=== PATIENT | female | born 1930 | race Two or more races ===

== ENCOUNTER 2017-11-26 21:29 | Inpatient (IN) | payer MEDICARE, BC ==
[~2017-11-26] VITALS: Ht 152.4 cm; Wt 56.7 kg
[2017-11-26 22:50] VITALS: BP 146/75
[2017-11-26] MEDS ORDERED: MAG HYDROX/AL HYDROX/SIMETH 30 ML UDC PO PRN (23:00)
[2017-11-26] MEDS ORDERED: LORAZEPAM 0.5 MG TABLET PO PRN (23:00)
[2017-11-26] MEDS ORDERED: ACETAMINOPHEN 325 MG TABLET PO PRN (23:00)
[2017-11-26] MEDS ORDERED: TEMAZEPAM 7.5 MG CAPSULE PO PRN (23:00)
[2017-11-26] MEDS ORDERED: ENAL10TA PO (23:17)
[2017-11-26] MEDS ORDERED: MELO15TA13 PO (23:17)
[2017-11-26] MEDS ORDERED: EZET10TA14 PO (23:17)
[2017-11-26] MEDS ORDERED: AMLO5TAB2 PO (23:17)
--- NOTE | 2017-11-26 23:30 | NUR ---
GPS HOME SUPPORT WORKER NOTE: RECEIVED PATIENT FROM [facility]. ([facility] TRANSFERRED VIA AMBULANCE) ON GURNEY WITH TWO PARAMEDICS AND BY SIDE AT 2245. REPORT OBTAINED FROM STEVE WATTS NURSE AT [facility] PRIOR TO ADMISSION. PATIENT ADMITTED ON 5150 HOLD FOR DTS. PER HOLD PATIENT WAS THREATENING TO JUMP OUT OF THE MOVING VEHICLE TODAY SAYING "I WANT TO ". ORIGINAL HOLD ON CHART, ADVISEMENT DONE. PATIENT IS ALERT AND ORIENTED X 1, AMBULATORY, CONTINENT, APPEARS DEPRESSED WITH FLAT AFFECT, WITHDRAWN. PATIENT HAS INTACT SKIN, GOOD CIRCULATION AND BREATHING IS UNLABORED WITH EQUAL RISE AND FALL OF THE CHEST WITH 98% ON ROOM AIR. DENIES PAIN, DOES NOT ENDORSE SI, HI, OR HALLUCINATIONS. PATIENT IS HARD OF HEARING AND REFUSED TO SIGN PAPERWORK, REFUSED MRSA SWAB AND VACCINATIONS. NO CONTRABAND WAS BROUGHT IN BY PATIENT, ORIENTED TO UNIT, AND DAUGHTER, DANYELL, GIVEN VISITING HOUR AND PHONE INFO BEFORE THEY LEFT. PATIENT WAS NOT HUNGRY AND HAS NO APPARENT NEEDS AT THIS TIME. CURRENTLY SLEEPING IN BED, SNYDER WITHIN REACH, LOW POSITION WITH SIDE RAILS UP X 2. DR[address] ZPAATA AND DR. SENA HAVE BEEN NOTIFIED OF PATIENT ADMISSION, MEDS RECONCILED. WILL CONTINUE TO MONITOR Q15 MINUTES FOR SAFETY
[2017-11-27] MEDS ORDERED: hydrALAZINE HCL 10 MG TABLET PO PRN (05:00)
[2017-11-27 08:00] VITALS: BP 142/76
[2017-11-27] MEDS: AMLODIPINE BESYLATE 5 MG TABLET PO SCH (08:40)
[2017-11-27] MEDS: ENALAPRIL MALEATE (10 MG) 10 MG TABLET PO SCH ×2 (08:40→16:23)
[2017-11-27] MEDS: EZETIMIBE 10 MG TABLET PO SCH (08:40)
[2017-11-27 10:03] LABS: BASOPHILS % (AUTO) 0.5 % (0.0-2.0); EOSINOPHILS % (AUTO) 4.7 % (0.0-6.0); HEMATOCRIT 36 % (33-45); HEMOGLOBIN 12.1 g/dL (11.5-14.8); LYMPHOCYTES # (AUTO) 1.1 /CMM (0.8-4.8); LYMPHOCYTES % (AUTO) 21.5 % (20.0-44.0); MEAN CORPUSCULAR HEMOGLOBIN 31 PG (26.0-33.0); MEAN CORPUSCULAR HGB CONC 33 g/dl (31.0-36.0); MEAN CORPUSCULAR VOLUME 94 fL (82-100); MONOCYTES # (AUTO) 0.4 /CMM (0.1-1.30); MONOCYTES % (AUTO) 8.3 % (2.0-12.0); NEUTROPHILS # (AUTO) 3.2 /CMM (1.8-8.9); PLATELET COUNT (AUTO) 317 /CMM (150-450); RDW COEFFICIENT OF VARIATION 13.9 (11.5-15.0); RED BLOOD CELL COUNT(AUTO) 3.85 MIL/uL (4.0-5.2); WHITE BLOOD COUNT (AUTO) 4.9 K/uL (4.3-11.0)
[2017-11-27 10:35] LABS: ALANINE AMINOTRANSFERASE 24 U/L (12-78); ALBUMIN 3.2 g/dL (3.4-5.0); ALKALINE PHOSPHATASE 40 U/L (46-116); ASPARTATE AMINOTRANSFERASE 19 U/L (15-37); BILIRUBIN,TOTAL 0.3 mg/dL (0.2-1.0); CALCIUM, SERUM 9.1 mg/dL (8.5-10.1); CARBON DIOXIDE 26 mmol/L (21-32); CHLORIDE 106 mmol/L (98-107); CREATININE 0.9 mg/dL (0.6-1.3); GLUCOSE 213 mg/dL (74-106); PHOSPHORUS 3.1 mg/dL (2.5-4.9); SODIUM SERUM 139 mmol/L (136-145); TOTAL PROTEIN, SERUM 6.8 g/dL (6.4-8.2); UREA NITROGEN, BLOOD 30 mg/dL (7-18)
[2017-11-27 10:57] LABS: THYROID STIMULATING HORMONE 0.937 uIU/mL (0.358-3.74)
[2017-11-27] MEDS: MELOXICAM 7.5 MG TABLET PO SCH (11:21)
--- NOTE | 2017-11-27 13:00 | NUR ---
URINE AND MRSA SWAB OBTAINED AT REQUEST OF [facility].
[2017-11-27 16:00] VITALS: BP 165/85
--- NOTE | 2017-11-27 18:21 | NUR ---
RN. CLOSING. PT RESTING IN BED, WITH FAMILY AT BEDSIDE. PT ENGAGING APPROPRIATELY AND DENIES SI/SH. PT COMPLIANT WITH MEDS. DAY NURSE DUTIES ATTENDED TO. PT COOPERATIVE AND APPROPRIATE AND WITHOUT CONCERN OR COMPLAINT AT THIS TIME.
[2017-11-27 18:45] LABS: APPEARANCE,URINE CLEAR (CLEAR); BILIRUBIN,URINE NEGATIVE (NEGATIVE); BLOOD, URINE NEGATIVE Ery/uL (NEGATIVE); COLOR,URINE YELLOW (YELLOW); KETONES,URINE NEGATIVE (NEGATIVE); LEUKOCYTE ESTERASE ,URINE TRACE (NEGATIVE); NITRITE, URINE NEGATIVE (NEGATIVE); PH,URINE 7.5 (5.0-8.0); PROTEIN,URINE NEGATIVE (NEGATIVE); UGLUCOSE NEGATIVE (NEGATIVE); UROBILINOGEN,URINE 0.2 EU/dL (0.2)
[2017-11-27 19:10] LABS: BACTERIA,URINE None seen /HPF (None Seen); RBC,URINE 0-2 /HPF (0-2); SQUAMOUS EPITHELIAL CELL,UR Few /HPF (None Seen)
[2017-11-27 20:19] VITALS: BP 126/67
[2017-11-27] MEDS: MIRTAZAPINE 15 MG TABLET PO SCH (21:16)
[2017-11-28] MEDS: ENALAPRIL MALEATE (10 MG) 10 MG TABLET PO SCH ×2 (08:13→16:13)
[2017-11-28] MEDS: EZETIMIBE 10 MG TABLET PO SCH (08:13)
[2017-11-28] MEDS: MELOXICAM 7.5 MG TABLET PO SCH (08:13)
[2017-11-28] MEDS: AMLODIPINE BESYLATE 5 MG TABLET PO SCH (08:14)
[2017-11-28 08:44] VITALS: BP 133/65
--- NOTE | 2017-11-28 12:20 | NUR ---
INITIAL DISCHARGE PLAN: Pt wants to return home to [address] [address] . DOYLE contacted pt Juan [phone] who confirmed that pt will return home upon discharge and that he would be picking her up from hospital and transporting home, DOYLE will help form a safe and proper discharge home in collaboration with .
[2017-11-28 16:00] VITALS: BP 120/54
--- NOTE | 2017-11-28 19:30 | NUR ---
RN NOTES RECEIVED PATIENT SITTING UP IN BED. AO X 3, ABLE TO MAKE NEEDS KNOWN. NO ACUTE DISTRESS NOTED. DENIES ANY PAIN AT THIS TIME. DENIES ANY SUICIDAL IDEATION AT THIS TIME. PATIENT CALM. SAFETY REMINDERS GIVEN. ON LOW BED WITH BILATERAL UPPER SIDE RAILS UP. CALL SNYDER WITHIN EASY REACH. WILL CONTINUE TO MONITOR. AT BEDSIDE.
[2017-11-28 20:00] VITALS: BP 158/69
[2017-11-28] MEDS: MIRTAZAPINE 15 MG TABLET PO SCH (21:11)
--- NOTE | 2017-11-29 06:45 | NUR ---
RN NOTES PATIENT ASLEEP, EASILY AROUSABLE. RESPIRATIONS EVEN. NO SIGNS OF PAIN NOTED. DUE MED GIVEN WITH NO ASE NOTE. NEEDS ATTENDED. KEPT CLEAN, DRY, AND COMFORTABLE. SAFETY PRECAUTIONS AND COMFORT MEASURES IN PLACE. WILL GIVE REPORT TO DAY SHIFT FOR CONTINUITY OF CARE.
[2017-11-29 09:00] VITALS: BP 144/55
[2017-11-29] MEDS: MELOXICAM 7.5 MG TABLET PO SCH (09:09)
[2017-11-29] MEDS: EZETIMIBE 10 MG TABLET PO SCH (09:09)
[2017-11-29] MEDS: AMLODIPINE BESYLATE 5 MG TABLET PO SCH (09:10)
[2017-11-29] MEDS: ENALAPRIL MALEATE (10 MG) 10 MG TABLET PO SCH ×2 (09:10→17:46)
[2017-11-29 16:00] VITALS: BP 149/69
[2017-11-29] MEDS: MAGNESIUM HYDROXIDE 30 ML UDC PO PRN (18:57)
--- NOTE | 2017-11-29 18:58 | NUR ---
RN NOTE:PATIENT COMPLAIN OF CONSTIPATION MEDICATED WITH MOM X1.WILL CONTINUE TO MONITOR .
[2017-11-29 20:31] VITALS: BP 150/74
[2017-11-29] MEDS ORDERED: BISACODYL SUPP (10 MG) 10 MG/SUPP.RECT SUPP.RECT RC PRN (21:00)
--- NOTE | 2017-11-29 21:09 | NUR ---
GPS-RN PATIENT C/O NOT HAVING BOWEL MOVEMENT FOR [address] SEGAL AND NOTIFIED OF FINDING ASSESSMENT AND GAVE AN ORDER FOR DULCOLAX 10MG SUPP NOTED AND CARRIED OUT. ADMINISTERED DULCOLAX 10MG I SUPP PER RECTAL AND EFFECTIVE.
[2017-11-29] MEDS: MIRTAZAPINE 15 MG TABLET PO SCH (21:40)
[2017-11-30 08:00] VITALS: BP 134/63
[2017-11-30] MEDS: MELOXICAM 7.5 MG TABLET PO SCH (09:16)
[2017-11-30] MEDS: ENALAPRIL MALEATE (10 MG) 10 MG TABLET PO SCH ×2 (09:16→17:23)
[2017-11-30] MEDS: EZETIMIBE 10 MG TABLET PO SCH (09:16)
[2017-11-30] MEDS: AMLODIPINE BESYLATE 5 MG TABLET PO SCH (09:17)
[2017-11-30 16:00] VITALS: BP 140/72
--- NOTE | 2017-11-30 19:16 | NUR ---
RN NOTE:PATIENT COMPLAIN OF PAIN MEDICATED WITH TYLENOL 650MG WILL CONTINUE TO MONITOR FOR PAIN.
--- NOTE | 2017-11-30 19:30 | NUR ---
GPS RN NOTE, RECEIVED PATIENT AWAKE AND IN BED, PATIENT HAS A COMPLAINT OF TOOTH PAIN AT 2 OUT 10 ON THE PAIN SCALE. PATIENT IS TAKING ORAL PAIN MEDICATION FOR THIS PAIN. PATIENT IS DISPLAYING NO S/S OF APPARENT DISTRESS AT THIS TIME. PATIENT BREATHING IS UNLABORED WITH EQUAL RISE AND FALL OF THE CHEST. PATIENT IS ALERT AND ORIENTED X 3 ON ROOM AIR WITH A SPO2 93%. PATIENT IS MED COMPLIANT, [place], DEPRESSED, COOPERATIVE, AND NEEDS REORIENTATION. PATIENT DENIES SUICIDE IDEATIONS AND HOMICIDAL IDEATIONS AT THIS TIME. PATIENT ASSISTED WITH TURNING AND REPOSITIONING Q2 HR AND PRN FOR COMFORT AND CIRCULATION. PATIENT HAS NO NEEDS AT THIS TIME. PATIENT EDUCATED ON THE USE OF THE CALL SNYDER. PATIENT BED SIDE RAILS UP X 2 FOR SAFETY, BED LOCKED AND LOW WILL CONTINUE TO MONITOR AND MAINTAIN SAFETY Q15 MIN WITH THE HELP OF STAFF.
--- NOTE | 2017-11-30 20:15 | NUR ---
GPS RN NOTE, FAMILY BROUGHT IN META MUCIL AND WOULD LIKE THIS PATIENT TO BE ABLE TO HAVE IT. DR ZAPATA ON FLOOR. INFORMED DR ZAPTAA OF MY FINDINGS. DR ZAPATA ORDERED TO CONTINUE META MUCIL AND TO GIVE 2 ROUNDED TEASPOONS MIX WITH 8OZ OF WATER TID PRN FOR CONSTIPATION. ALL ORDERS NOTED AND CARRIED OUT WILL CONTINUE TO MONITOR THIS PATIENT.
[2017-11-30 20:20] VITALS: BP 154/76
[2017-11-30] MEDS ORDERED: BENEFIBER 4 GM 1 EA PACKET PO PRN (20:30)
[2017-11-30] MEDS: MIRTAZAPINE 15 MG TABLET PO SCH (21:56)
[2017-12-01 08:00] VITALS: BP 154/75
[2017-12-01] MEDS: EZETIMIBE 10 MG TABLET PO SCH (08:18)
[2017-12-01] MEDS: AMLODIPINE BESYLATE 5 MG TABLET PO SCH (08:18)
[2017-12-01] MEDS: ENALAPRIL MALEATE (10 MG) 10 MG TABLET PO SCH ×2 (08:19→16:23)
[2017-12-01] MEDS: MELOXICAM 7.5 MG TABLET PO SCH (08:19)
--- NOTE | 2017-12-01 15:16 | NUR ---
DOYLE spoke with pts daughter Ninoska [phone] to notify that pt will be discharged on 12/02/17. Pts daughter confirmed that MD had notified her and she would be picking pt up on 12/02/17 and transporting home via private vehicle. Pts daughter also requested home health and provided DOYLE with home health agency name and contact information. [facility] phone: [phone] fax: [phone].
[2017-12-01 16:00] VITALS: BP 157/81
[2017-12-01] MEDS: MAGNESIUM HYDROXIDE 30 ML UDC PO PRN (18:28)
[2017-12-01 20:00] VITALS: BP 142/74
[2017-12-01] MEDS: MIRTAZAPINE 15 MG TABLET PO SCH (20:37)
[2017-12-02 08:00] VITALS: BP 153/78
[2017-12-02] MEDS: MELOXICAM 7.5 MG TABLET PO SCH (08:44)
[2017-12-02] MEDS: AMLODIPINE BESYLATE 5 MG TABLET PO SCH (08:45)
[2017-12-02] MEDS: ENALAPRIL MALEATE (10 MG) 10 MG TABLET PO SCH ×2 (08:45→16:06)
[2017-12-02] MEDS: EZETIMIBE 10 MG TABLET PO SCH (08:45)
--- NOTE | 2017-12-02 15:19 | NUR ---
DOYLE faxed home health referral [facility] Address: [address] [address], [place] [address] .
--- NOTE | 2017-12-02 15:50 | NUR ---
DISCHARGE NOTE: Pt being discharged at 4:00pm home to [address] [facility] [facility] [address] via private vehicle by pts daughter Ninoska [phone] who agrees with discharge plan. Pts appeared in a pleasant mood with congruent affect. Pt denied Visual/auditory hallucinations and denied suicidal/homicidal ideations. Pt will be discharged home with home health. DOYLE has submitted referral to [facility] Address: [address], [place] [address] . DOYLE encouraged pts daughter to schedule a follow up appointment with a psychiatrist and DOYLE also provided pts daughter will Mental health referrals to [facility] [address], [facility] [id number] and [facility] [address] [address] [id number] . DOYLE provided pts daughter with [employer] application line phone number . Pts daughter will also schedule a follow up appointment with [employer]: Dr. Mesha Saldana [facility] [address] [place] [address]. The multidisciplinary exitcare form was done, printed, signed, and given to the patient.
[2017-12-02 16:00] VITALS: BP 142/77
[2017-12-02 16:06] VITALS: BP 142/77
--- NOTE | 2017-12-02 16:33 | NUR ---
GPS DISCHARGE NOTE: PATIENT DISCHARGE HOME WITH AND DAUGHTER TO PICKED UP. PT IN STABLE CONDITION NO S/S DISTRESS NOTED, PT A/O X4, AMBULATORY ,SELF CARE, DENIES SUICIDAL AND HOMICIDAL IDEATION PT DENIES VISUAL AND AUDITORY HALLUCINATIONS, PT DENIES FEELING DEPRESSED .BOTH MD AWARE WITH DC ORDER RX DONE , EXPLAIN AND GIVEN TO PT AND DAUGHTER, FOLLOW UP APPOINTMENT GIVEN TO PT.HOME HEALTH ORDERED, PT VSS , PT WAS SEEN AND EXAMINE BY DR ANGEL. SKIN CLEAN AND INTACT, ALL BELONGINGS RETURNED TO PT.
== END 2017-12-02 16:25 | disposition home or self-care (01) | DRG 881 ==
LOC: GPS 22:35
PROVIDERS: ADMIT Psychiatry & Neurology Psychiatry; ATTEND Psychiatry & Neurology Psychiatry
DX: F32.9 Major depressive disorder, single episode, unspecified (principal); R45.851 Suicidal ideations; F23 Brief psychotic disorder; G89.4 Chronic pain syndrome; M06.9 Rheumatoid arthritis, unspecified; E78.5 Hyperlipidemia, unspecified; I10 Essential (primary) hypertension; E11.9 Type 2 diabetes mellitus without complications; Z96.653 Presence of artificial knee joint, bilateral; Z88.0 Allergy status to penicillin; G47.9 Sleep disorder, unspecified; H91.90 Unspecified hearing loss, unspecified ear
CPT/HCPCS: 36415; 71045-TC; 80053-TC; 81000-TC; 83735-TC; 84100-TC; 84443-TC; 85025-TC; 87081-TC